=== PATIENT | male | born 1945 | race Caucasian/White ===

== ENCOUNTER 2016-12-01 06:26 | Inpatient (IN) | payer MEDICARE ==
[~2016-12-01] VITALS: Ht 175.3 cm; Wt 96.5 kg
[2016-12-01] VITALS (13 sets, daily range): BP systolic 125–161; BP diastolic 60–79; PULSE 67–82; RESP 14–20; TEMP 96.6–98; O2SAT 96–100
[~2016-12-01 06:26] MED LIST: ASPI81TA82 PO; BACI500O9 TOP; CEPH500C3 PO; GLIP5 PO; LOVA20TA PO; METF500 PO; NIAC50TA PO; PERC10TA27 PO; PRIN10TA PO
[2016-12-01] MEDS ORDERED: SODIUM CHLORIDE 0.9% FLUSH 5 ML FLUSH IVF PRN (06:30)
--- NOTE | 2016-12-01 07:00 | RADRPT ---
EXAM DATE/TIME: 12/01/2016 06:39 [facility] COMPARISON: CT BRAIN W/O CONTRAST, January 15, 2015, 1:07. INDICATIONS : Trauma; syncopal episode and fall. RADIATION DOSE: 47.59 CTDIvol (mGy) MEDICAL HISTORY : Hypertension. Diabetes mellitus type 2. SURGICAL HISTORY : None. ENCOUNTER: Initial ACUITY: 1 day PAIN SCALE: 3/10 LOCATION: cranial TECHNIQUE: Multiple contiguous axial images were obtained of the head. Using automated exposure control and adj ustment of the mA and/or kV according to patient size, radiation dose was kept as low as reasonably a chievable to obtain optimal diagnostic quality images. FINDINGS: CEREBRUM: The ventricles are normal for age. No evidence of midline shift, mass lesion, hemorrhage or acute in farction. No extra-axial fluid collections are seen. POSTERIOR FOSSA: The cerebellum and brainstem are intact. The 4th ventricle is midline. The cerebellopontine angle i s unremarkable. EXTRACRANIAL: The visualized portion of the orbits is intact. SKULL: The calvaria is intact. No evidence of skull fracture. CONCLUSION: Negative noncontrast CT brain. Remington Berg MD on December 01, 2016 at 6:57 Board Certified Radiologist. This report was verified electronically.
--- NOTE | 2016-12-01 07:01 | RADRPT ---
EXAM DATE/TIME: 12/01/2016 06:39 [facility] COMPARISON: CT FACIAL BONES W/O CONTRAST, January 15, 2015, 1:07. INDICATIONS : Trauma; syncopal episode and fall. RADIATION DOSE: 36.57 CTDIvol (mGy) MEDICAL HISTORY : Hypertension. Diabetes mellitus type 2. SURGICAL HISTORY : None. ENCOUNTER: Initial ACUITY: 1 day PAIN SCORE: 3/10 LOCATION: Bilateral facial TECHNIQUE: Volumetric scanning of the facial bones was performed. Using automated exposure control and adjustme nt of the mA and/or kV according to patient size, radiation dose was kept as low as reasonably achiev able to obtain optimal diagnostic quality images. FINDINGS: ORBITS: The orbital and infraorbital osseous structures are intact. The retroconal structures have a normal configuration. No radiopaque foreign bodies are seen. NASAL BONE: The nasal bone and maxillary spine are intact ZYGOMATIC ARCHES: Symmetric without evidence of fracture. SINUSES: The maxillary, ethmoid and frontal sinuses are intact. No air-fluid levels seen. NASAL CAVITY: The nasal septum is intact and midline. The lacrimal ducts are intact. SOFT TISSUES: No radiopaque foreign bodies seen. No soft-tissue swelling is seen. INTRACRANIAL: No intracranial air seen. CRIBIFORM PLATE: Grossly intact. CONCLUSION: No facial bone fractures seen. Remington Berg MD on December 01, 2016 at 6:59 Board Certified Radiologist. This report was verified electronically.
[2016-12-01] MEDS ORDERED: LISI10TA3 PO (07:21)
[2016-12-01] MEDS ORDERED: LOVA20TA PO (07:21)
[2016-12-01] MEDS ORDERED: ASPI1TAB69 PO (07:21)
[2016-12-01 07:22] LABS: AUTOMATED NEUTROPHIL # 7.2 TH/MM3 (1.8-7.7); BASOPHIL # 0.1 TH/MM3 (0-0.2); BASOPHIL % 0.7 % (0.0-2.0); EOSINOPHIL # 0.1 TH/MM3 (0-0.4); EOSINOPHIL % 1.7 % (0.0-4.0); HEMATOCRIT 31.1 % (39.0-51.0); HEMO FLAGS DIFF FINAL; LYMPH % 6.7 % (9.0-44.0); LYMPHOCYTE # 0.6 TH/MM3 (1.0-4.8); MEAN CELL VOLUME 95.9 FL (80.0-100.0); MEAN CORPUSCULAR HGB CONC 33.4 % (32.0-36.0); MONO % 9.4 % (0.0-8.0); NEUT % 81.5 % (16.0-70.0); PLATELET COUNT 179 TH/MM3 (150-450); RED BLOOD COUNT 3.24 MIL/MM3 (4.50-5.90); RED CELL DISTRIBUTION WIDTH 14.2 % (11.6-17.2); WHITE BLOOD COUNT 8.9 TH/MM3 (4.0-11.0)
--- NOTE | 2016-12-01 07:30 | PD ---
HPI Chief Complaint: Fall Time Seen by Provider: 07:06 Travel History International Travel<30 days: No Contact w/Intl Traveler<30days: No Traveled to known affect area: No History of Present Illness HPI 71-year-old male arrives to the ER by EMS. He woke up to use the bathroom this morning. In the bathroom he losy consciousness and fell to the ground. EMS notes there was stool in the toilet. Upon arrival to the scene EMS noted a large volume of blood on the patient about the floor. The patient was placed in a collar and on a backboard and brought to the ER. His vital signs were noted to have been within normal range with a heart rate of about 80 and a blood pressure of about 130/80. Blood sugar was 60. The GCS was 15 on scene. The patient complained of pain about the lower lip. In the ER he complains of pain related to the hard backboard however after removal be doesn't offer any specific complaint of pain. He does report losing consciousness. Patient reports he takes anticoagulants for stents however does not know the names of his medications [facility] Past Medical History High Cholesterol: Yes Diabetes: Yes Patient Takes Glucophage: No Diminished Hearing: Yes Hypertension: Yes Immunizations Current: Yes Past Surgical History Joint Replacement: Yes (LEFT ROTORCUFF 1991) Social History Alcohol Use: Yes (BEER A DAY) Tobacco Use: No Substance Use: No Allergies-Medications (Allergen,Severity, Reaction): Coded Allergies: No Known Allergies (Unverified , 12/01/16) Reported Meds & Prescriptions Reported Meds & Active Scripts Active Reported Lovastatin 20 Mg Tab 20 Mg PO DAILY Lisinopril 10 Mg Tab 10 Mg PO DAILY Aspirin 81 Mg Tabdr 81 Mg PO DAILY Review of Systems Except as stated in HPI: all other systems reviewed are Neg Physical Exam Narrative GENERAL: 71-year-old male well-nourished well-developed mild distress SKIN: Warm and dry. HEAD: Atraumatic. Normocephalic. EYES: Pupils equal and round. No scleral icterus. No injection or drainage. ENT: No nasal bleeding or discharge. Mucous membranes pink and moist. Lower frontal dentition demonstrates an Ruff 2 fractures and a 2 cm maximal diameter round gingival laceration about the region of the canine on the right lower side. NECK: Trachea midline. No JVD. CARDIOVASCULAR: Regular rate and rhythm. No murmur appreciated. RESPIRATORY: No accessory muscle use. Clear to auscultation. Breath sounds equal bilaterally. GASTROINTESTINAL: Abdomen soft, non-tender, nondistended. Hepatic and splenic margins not palpable. MUSCULOSKELETAL: No obvious deformities. No clubbing. No cyanosis. No edema. NEUROLOGICAL: Awake and alert. No obvious cranial nerve deficits. Motor grossly within normal limits. Normal speech. PSYCHIATRIC: Appropriate mood and affect; insight and judgment normal. Data Data Last Documented VS Vital Signs Date Time Temp Pulse Resp B/P Pulse Ox O2 Delivery O2 Flow Rate FiO2 12/01/16 06:32 98.0 67 16 141/69 100 Room Air Orders Electrocardiogram (12/01/16 06:29) Complete Blood Count With Diff (12/01/16 06:29) Troponin I (12/01/16 06:29) Act Partial Throm Time (Ptt) (12/01/16 06:29) Prothrombin Time / Inr (Pt) (12/01/16 06:29) Ct Brain W/O Iv Contrast(Rout) (12/01/16 06:29) Blood Glucose (12/01/16 06:29) Ecg Monitoring (12/01/16 06:29) Iv Access Insert/Monitor (12/01/16 06:29) Oximetry (12/01/16 06:29) Sodium Chloride 0.9% Flush (Ns Flush) (12/01/16 06:30) Ct Facial Bones W/O Iv Cont (12/01/16 ) Basic Metabolic Panel (Bmp) (12/01/16 06:29) Pelvis, Ap Only (Routine) (12/01/16 06:39) Labs Laboratory Tests Test 12/01/16 07:05 White Blood Count 8.9 TH/MM3 Red Blood Count 3.24 MIL/MM3 Hemoglobin 10.4 GM/DL Hematocrit 31.1 % Mean Corpuscular Volume 95.9 FL Mean Corpuscular Hemoglobin 32.0 PG Mean Corpuscular Hemoglobin 33.4 % Concent Red Cell Distribution Width 14.2 % Platelet Count 179 TH/MM3 Mean Platelet Volume 8.6 FL Neutrophils (%) (Auto) 81.5 % Lymphocytes (%) (Auto) 6.7 % Monocytes (%) (Auto) 9.4 % Eosinophils (%) (Auto) 1.7 % Basophils (%) (Auto) 0.7 % Neutrophils # (Auto) 7.2 TH/MM3 Lymphocytes # (Auto) 0.6 TH/MM3 Monocytes # (Auto) 0.8 TH/MM3 Eosinophils # (Auto) 0.1 TH/MM3 Basophils # (Auto) 0.1 TH/MM3 CBC Comment DIFF FINAL Differential Comment MDM Medical Decision Making Medical Screen Exam Complete: Yes Emergency Medical Condition: Yes Medical Record Reviewed: Yes Differential Diagnosis Bleed, facial bone fracture, laceration, anemia, electrolyte imbalance, arrhythmia, vasovagal episode Narrative Course Blood work and imaging to be followed up by oncoming provider. Faustino Chirinos MD Dec 01, 2016 07:30
[2016-12-01 07:32] LABS: PROTHROMBIN TIME - PATIENT 10.7 SEC (9.8-11.6)
--- NOTE | 2016-12-01 07:33 | RADRPT ---
EXAM DATE/TIME: 12/01/2016 06:52 [facility] COMPARISON: No previous studies available for comparison. INDICATIONS : Fall Pelvic pain MEDICAL HISTORY : Hypertension. Diabetes mellitus type II. SURGICAL HISTORY : None. ENCOUNTER: Initial ACUITY: 1 day PAIN SCORE: 8/10 LOCATION: Bilateral pelvis FINDINGS: Single AP view of the pelvis demonstrates no fracture or dislocation. Mineralization is within normal limits. There are mild degenerative changes at the hip joints. No soft tissue abnormality or radiopa que foreign body is identified. CONCLUSION: No acute abnormality is identified. Maurice Vargas MD on December 01, 2016 at 7:30 Board Certified Radiologist. This report was verified electronically.
[2016-12-01 07:37] LABS: APTT (PATIENT) 25.9 SEC (24.3-30.1)
[2016-12-01] MEDS ORDERED: LIDOCAINE 1%/EPINEPHrine 1:100,000 SOLN 20 ML VIAL INFIL ONE (07:45)
[2016-12-01 07:53] LABS: ANION GAP 11 MEQ/L (5-15); BLOOD UREA NITROGEN 86 MG/DL (7-18); CHLORIDE 103 MEQ/L (98-107); GLOMERULAR FILTRATION RATE 19 ML/MIN (>89); SODIUM (NA) 133 MEQ/L (136-145)
--- NOTE | 2016-12-01 08:00 | PD ---
Physical Exam Date Seen by Provider: Dec 01, 2016 Time Seen by Provider: 08:00 Narrative Patient is a 71-year-old male who had a syncopal episode this morning brought in by EMS. He is managed by Dr. Rhodes who asked me to perform lower lip laceration repair. Please refer to her note for full history and physical and disposition. Data Data Last Documented VS Vital Signs Date Time Temp Pulse Resp B/P Pulse Ox O2 Delivery O2 Flow Rate FiO2 12/01/16 06:32 98.0 67 16 141/69 100 Room Air Orders Electrocardiogram (12/01/16 06:29) Complete Blood Count With Diff (12/01/16 06:29) Troponin I (12/01/16 06:29) Act Partial Throm Time (Ptt) (12/01/16 06:29) Prothrombin Time / Inr (Pt) (12/01/16 06:29) Ct Brain W/O Iv Contrast(Rout) (12/01/16 06:29) Blood Glucose (12/01/16 06:29) Ecg Monitoring (12/01/16 06:29) Iv Access Insert/Monitor (12/01/16 06:29) Oximetry (12/01/16 06:29) Sodium Chloride 0.9% Flush (Ns Flush) (12/01/16 06:30) Ct Facial Bones W/O Iv Cont (12/01/16 ) Basic Metabolic Panel (Bmp) (12/01/16 06:29) Pelvis, Ap Only (Routine) (12/01/16 06:39) Lidocai-Epi 1%-1:100,000 Inj (Xylocaine- (12/01/16 07:45) Sodium Chlor 0.9% 1000 Ml Inj (Ns 1000 M (12/01/16 08:15) Dextrose 50% In Benji (Syr) Inj (D50w (Syr (12/01/16 08:30) Admit Order (Ed Use Only) (12/01/16 08:47) Labs Laboratory Tests Test 12/01/16 07:05 White Blood Count 8.9 TH/MM3 Red Blood Count 3.24 MIL/MM3 Hemoglobin 10.4 GM/DL Hematocrit 31.1 % Mean Corpuscular Volume 95.9 FL Mean Corpuscular Hemoglobin 32.0 PG Mean Corpuscular Hemoglobin 33.4 % Concent Red Cell Distribution Width 14.2 % Platelet Count 179 TH/MM3 Mean Platelet Volume 8.6 FL Neutrophils (%) (Auto) 81.5 % Lymphocytes (%) (Auto) 6.7 % Monocytes (%) (Auto) 9.4 % Eosinophils (%) (Auto) 1.7 % Basophils (%) (Auto) 0.7 % Neutrophils # (Auto) 7.2 TH/MM3 Lymphocytes # (Auto) 0.6 TH/MM3 Monocytes # (Auto) 0.8 TH/MM3 Eosinophils # (Auto) 0.1 TH/MM3 Basophils # (Auto) 0.1 TH/MM3 CBC Comment DIFF FINAL Differential Comment Prothrombin Time 10.7 SEC Prothromb Time International 1.0 RATIO Ratio Activated Partial 25.9 SEC Thromboplast Time Sodium Level 133 MEQ/L Potassium Level 5.0 MEQ/L Chloride Level 103 MEQ/L Carbon Dioxide Level 19.0 MEQ/L Anion Gap 11 MEQ/L Blood Urea Nitrogen 86 MG/DL Creatinine 3.27 MG/DL Estimat Glomerular Filtration 19 ML/MIN Rate Random Glucose 52 MG/DL Calcium Level 7.8 MG/DL Troponin I LESS THAN 0.02 NG/ML [facility] Medical Record Reviewed: Yes Supervised Visit with RICHARD: Yes Procedures Procedure Narrative LACERATION #1 LOCATION: Right lower lip buccal mucosa LENGTH: 1 cm NUMBER OF STITCHES/RL: 1 [id number] REPAIR: The area of the laceration was prepped with Betadine and sterilely draped. The laceration was infiltrated with 0.5cc of 1% lidocaine with epinephrine. The wound was copiously irrigated and explored without evidence of foreign body, tendon injury or neurovascular injury. The wound was closed using 4-0 Vicryl. This was a single layer repair. Patient tolerated the procedure well. LACERATION #2 LOCATION: Right lower lip buccal mucosa LENGTH: 4 mm SHAPE: Linear NUMBER OF STITCHES/RL: One simple interrupted REPAIR: The area of the laceration was prepped with Betadine and sterilely draped. The laceration was infiltrated with 0.25 cc of 1% lidocaine with epinephrine. The wound was copiously irrigated and explored without evidence of foreign body, or neurovascular injury. The wound was closed using 4-0 Vicryl. This was a single layer repair. Patient tolerated the procedure well. LACERATION LOCATION: Right lower lip buccal mucosa LENGTH: 6 mm SHAPE: Linear NUMBER OF STITCHES/RL: One simple interrupted REPAIR: The area of the laceration was prepped with Betadine and sterilely draped. The laceration was infiltrated with 0.5 cc of 1% lidocaine with epi. The wound was copiously irrigated and explored without evidence of foreign body, tendon injury or neurovascular injury. The wound was closed using 4-0 Vicryl. This was a single layer repair. Patient tolerated the procedure well. LACERATION #4 LOCATION: Right chin LENGTH: 5 mm SHAPE: Linear NUMBER OF STITCHES/RL: 1 REPAIR: The area of the laceration was prepped with Betadine and sterilely draped. The laceration was infiltrated with 0.5 cc of 1% lidocaine with epinephrine. The wound was copiously irrigated and explored without evidence of foreign body, tendon injury or neurovascular injury. The wound was closed using 6-0 Prolene. This was a single layer repair. Patient tolerated the procedure well. LACERATION #5 LOCATION: Right chin LENGTH: 5 mm SHAPE: Linear NUMBER OF STITCHES/RL: 1 REPAIR: The area of the laceration was prepped with Betadine and sterilely draped. The laceration was infiltrated with 0.5 cc of 1% lidocaine with epi. The wound was copiously irrigated and explored without evidence of foreign body or neurovascular injury. The wound was closed using 6-0 Prolene. This was a single layer repair. Patient tolerated the procedure well. Diagnosis Primary Impression: Lip laceration Qualified Code: S01.511A - Lip laceration, initial encounter Condition: Stable Maurice Vallejo III Dec 01, 2016 08:00
[2016-12-01] MEDS ORDERED: SODIUM CHLOR 0.9% 1000 ML INJ 1,000 ML IV ONE (08:15)
[2016-12-01] MEDS ORDERED: DEXTROSE 50% IN WATER 50 ML SYRINGE IV ONE (08:30)
--- NOTE | 2016-12-01 08:55 | HHI.HP ---
HPI Service Family Medicine Primary Care Physician Non-Staff Admission Diagnosis renal failure Diagnoses: International Travel<30 Days: No Contact w/Intl Traveler<30days: No Known Affected Area: No History of Present Illness 71y male with CAD s/p 3 stents, HTN, HLD, and DM2 presents 11/30/16 by EMS after passing out and waking up on bathroom floor. He denies any memory of events leading up to fall. Best he remembers, went to bathroom at 4:30am, noted water on the floor from leaky sink, and next memory is being at the hospital. Per family friend, pt hit back of his head on bathtub and was "out of it", agitated and trying to punch her. He bit his mouth during the event, puncturing the skin and bleeding profusely. Also has mild shoulder pain, but no other muscle or nerve pain. Currently denies GALLAGHER, blurry vision, chest pain, palpitations, or SOB. Has history of hypoglycemic episodes resulting in syncope or near-syncopal events. Denies drinking excessively evening of fall- had two beers with lunch. Denies changes to medication regimen. Denies focal muscle pain or loss of function- he has mild bilateral shoulder pain where he hit. Review of Systems Constitutional: DENIES: Fever, Chills, Dizziness Eyes: DENIES: Blurred vision, Double Vision Ears, nose, mouth, throat: DENIES: Sinus Pain, Toothache Respiratory: DENIES: Cough, Shortness of breath Cardiovascular: COMPLAINS OF: Syncope, Lower Extremity Edema (R only), DENIES : Chest pain, Palpitations Gastrointestinal: DENIES: Constipation, Diarrhea, Nausea, Vomiting Genitourinary: DENIES: Urgency, Hematuria, Dysuria Musculoskeletal: COMPLAINS OF: Muscle aches (shoulder, bilateral), Back pain ( lumbar, chronic) Hematologic/lymphatic: COMPLAINS OF: Bruising (knees) Neurologic: COMPLAINS OF: Speech Problems (secondary to lip swelling), DENIES : Headache, Localized weakness, Paresthesias, Seizures Psychiatric: DENIES: Confusion, Depression Past Family Social History Past Medical History CAD s/p 3 stents (04/2016) HTN HLD DM2 Alcohol use above recommended limit (3-4 beers/day) Hx ARTHUR secondary to contrast (2015) Past Surgical History Cardiac stent x3 (04/2016) L rotator cuff repair (1991) Reported Medications (OBTAINED FROM CALLING [facility] 11/30/16) Allopurinol 300 Mg Tab 300 Mg PO DAILY Isosorbide Mononitrate ER (Isosorbide Mononitrate) 60 Mg Tab 60 Mg PO DAILY Brilinta (Ticagrelor) 90 Mg Tab 90 Mg PO BID Clopidogrel (Clopidogrel Bisulfate) 75 Mg Tab 75 Mg PO DAILY Furosemide 40 Mg Tab 40 Mg PO BID Lisinopril 20 Mg Tab 20 Mg PO DAILY Glimepiride 4 Mg Tab 4 Mg PO DAILY Amlodipine (Amlodipine Besylate) 5 Mg Tab 5 Mg PO DAILY Trazodone (Trazodone HCl) 50 Mg Tab 50 Mg PO HS Allergies: Coded Allergies: No Known Allergies (Unverified , 12/01/16) Family History Father, , "oat cell" cancer Mother, 84y, unknown cause of Two children, healthy Social History Tobacco: none (quit 50+ years ago when joining [employer], 1967) Alcohol: daily, beer, 3-4 drinks, denies hx withdrawal Illicit drugs: denies Retired police manager. Lives alone, but has friend, Kisha, staying with him at present (she called EMS). Lives in [place], [place], travels between there and here every couple of weeks. Has flight Friday to return. Unsure who would be medical decision-maker: ultimately states it would be his brother, Alf , who lives in [place], [place] Physical Exam Vital Signs Vital Signs Date Time Temp Pulse Resp B/P Pulse Ox O2 Delivery O2 Flow Rate FiO2 12/01/16 06:32 98.0 67 16 141/69 100 Room Air Physical Exam CONST: Obese male in NAD DERM: Warm and dry, superficial abrasions on both arms, erythema on knees bilaterally HEENNT: PERRL. EOMI. MMM. Myosis. Very poor dentition with jagged teeth. Laceration of skin under R lip in semi-[place] configuration, ~2 inch in length, closed with sutures. R lip grossly swollen. CV: RRR. No murmurs. RESP: Prolonged expiratory phase with harsh transmitted upper respiratory sounds. Moderate air movement. Breathing well on RA. Speaks full sentences without difficulty. GI: Abd soft, distended, non-tender. +BS MSK: Moves all four limbs against gravity. R ankle swollen, non-tender, non- erythematous. Yellow, brittle, dry toenails. No skin breakdown noted on feet. NEURO: Alert and oriented to person, place (State, City) , time (Year, Month, Date), and reason for hospitalization. Motor and sensory function grossly intact. PSYCH:Appropriate. Moderate insight. Laboratory Laboratory Tests Test 12/01/16 07:05 White Blood Count 8.9 Red Blood Count 3.24 Hemoglobin 10.4 Hematocrit 31.1 Mean Corpuscular Volume 95.9 Mean Corpuscular Hemoglobin 32.0 Mean Corpuscular Hemoglobin 33.4 Concent Red Cell Distribution Width 14.2 Platelet Count 179 Mean Platelet Volume 8.6 Neutrophils (%) (Auto) 81.5 Lymphocytes (%) (Auto) 6.7 Monocytes (%) (Auto) 9.4 Eosinophils (%) (Auto) 1.7 Basophils (%) (Auto) 0.7 Neutrophils # (Auto) 7.2 Lymphocytes # (Auto) 0.6 Monocytes # (Auto) 0.8 Eosinophils # (Auto) 0.1 Basophils # (Auto) 0.1 CBC Comment DIFF FINAL Differential Comment Prothrombin Time 10.7 Prothromb Time International 1.0 Ratio Activated Partial 25.9 Thromboplast Time Sodium Level 133 Potassium Level 5.0 Chloride Level 103 Carbon Dioxide Level 19.0 Anion Gap 11 Blood Urea Nitrogen 86 Creatinine 3.27 Estimat Glomerular Filtration 19 Rate Random Glucose 52 Calcium Level 7.8 Troponin I LESS THAN 0.02 Result Diagram: 12/01/16 0705 12/01/16 0705 Imaging Last Impressions Pelvis X-Ray 12/01/16 0639 Signed Impressions: Service Date/Time: Thursday, December 01, 2016 06:52 - CONCLUSION: No acute abnormality is identified. Maurice Vargas MD Head CT 12/01/16 0629 Signed Impressions: Service Date/Time: Thursday, December 01, 2016 06:39 - CONCLUSION: Negative noncontrast CT brain. Remington Berg MD Maxillofacial CT 12/01/16 0000 Signed Impressions: Service Date/Time: Thursday, December 01, 2016 06:39 - CONCLUSION: No facial bone fractures seen. Remington Berg MD Assessment and Plan Assessment and Plan 71y male with DM2 and CAD hospitalized 11/30/15 for syncope, found to be in acute renal failure and hypoglycemic. Code Status Full Discussed Condition With SDW: Dr. Hicks DW: Dr. Jacques Problem List: (1) Syncope Status: Acute Plan: Presented via EMS after unremembered fall in bathroom with head contusion , AMS, questionable LOC. Pt alert and oriented during interview. Blood sugar 52 on arrival, repeat 60. Shaking arms and some word finding difficulty. Hx of hypoglycemic episodes resulting in syncope. Afebrile. No leukocytosis. No anemia. Hypertensive to 190/90 on arrival-. Neuro exam with no focal sensory or motor deficits. Ddx: Hypoglycemia vs orthostatic hypotension vs alcohol intoxication vs cardiac arrhythmia vs mechanical fall vs polypharmacy Plan Admit to inpatient (Attending: Dr. Jacques) ACS rule out: Trend Trops, CK, EKG EKGs pending Trop #1 wnl. Trops 2&3 pending CK 1&2 pending Carotid artery ultrasound pending Daily BMP Electrolytes wnl on admission Monitor and replete blood sugars (see DM2) Hypoglycemic on admission- POC glu 50 and 62 Infectious U/A pending Imaging: Head CT: no acute bleed Pelvic xray: no acute fx Facial CT w/o- no acute fx facial bones Supportive care OOB with assistance, continuous telemetry, oxygen supplementation PRN saturations 88+, PT consulted (2) Renal failure Status: Acute Plan: ED visit 2 years ago- baseline Cr 1.6. Currently 3.4. Denies recent changes to medications or drinking habits. Denies changes to UOP or weight loss /weight gain. -Fluids as below -Trend Bun/Cr -Monitor I/Os -Mg, Ca, PO4, LFT, uric acid pending (3) Lip laceration Status: Acute Plan: Poor dentition with jagged teeth. Appears to have bit lip during fall. S/p lac repair in ED. Per UTD, will start prophylactic abx as below. -Amoxicillin 500mg BID -Pain management: [place] 5/325 1 tab q6h pain 5-10 [place] 5/325 1 tab q6h breakthrough pain (4) DM2 (diabetes mellitus, type 2) Status: Chronic Plan: Hold home glimeperide. -LSSI + Accue-checks ACHS -Pending sugars over next 24 hours, may add scheduled insulin at meals (5) CAD (coronary artery disease) Status: Chronic Plan: S/p stents x3 (04/2016). -Continue home aspirin -Continue home Plavix -Discontinue duplicate medication, discontinue at discharge -Continue home Lasix 40mg BID -Continue home Isosorbide mononitrate 60mg daily (6) HLD (hyperlipidemia) Status: Chronic Plan: No lipid lowering medications on admit. Pt is poor historian for medications- appears to get some from PCP in [facility] and some from [place]. -Pravastatin 40mg daily HS, continue at discharge (7) HTN (hypertension) Status: Chronic Plan: -Continue home amlodipine 5mg daily -Continue home lisinopril 20mg daily (8) Gout Status: Chronic Plan: -Hold home allopurinol 300mg daily (9) Alcohol consuption of more than two drinks per day Status: Chronic Plan: 3-4 beers/daily. No hx of withdrawal. -[facility] protocol -Alcohol cessation counseling provided. Recommended <2 drinks/daily for men (10) MDD (major depressive disorder) Status: Chronic Plan: -Continue home trazodone 50mg HS (11) FEN/PPX Status: Acute Plan: Fluids: MIVF- NS @140mL/hr Electrolytes: monitor and replete, PRN. Wnl on admission. Continue monitor potassium w renal failure Nutrition: Diabetic 1800cal diet DVT ppx: Lovenox 30mg INJ daily (renally dosed for acute renal failure) GI ppx: Not indicated Physician Certification 2 Midnight Certification Type: Admission for Inpatient Services Order for Inpatient Services The services are ordered in accordance with Medicare regulations or non- Medicare payer requirements, as applicable. In the case of services not specified as inpatient-only, they are appropriately provided as inpatient services in accordance with the 2-midnight benchmark. Estimated LOS (days): 2 days is the estimated time the patient will need to remain in the hospital, assuming treatment plan goals are met and no additional complications. Post-Hospital Plan: Home Problem Qualifiers (1) Syncope: Qualified Code: R55 - Syncope, unspecified syncope type (2) Lip laceration: Qualified Code: S01.511A - Lip laceration, initial encounter (3) DM2 (diabetes mellitus, type 2): (4) CAD (coronary artery disease): Qualified Code: I25.10 - Coronary artery disease involving [place] coronary artery of [place] heart without angina pectoris (5) Gout: Qualified Code: M1A.30X0 - Chronic gout due to renal impairment without tophus , unspecified site (6) MDD (major depressive disorder): Qualified Code: F33.41 - Recurrent major depressive disorder, in partial remission Luana Gonzalez MD R1 Dec 01, 2016 08:55
--- NOTE | 2016-12-01 09:46 | PD ---
Data Data Last Documented VS Vital Signs Date Time Temp Pulse Resp B/P Pulse Ox O2 Delivery O2 Flow Rate FiO2 12/01/16 06:32 98.0 67 16 141/69 100 Room Air Orders Electrocardiogram (12/01/16 06:29) Complete Blood Count With Diff (12/01/16 06:29) Troponin I (12/01/16 06:29) Act Partial Throm Time (Ptt) (12/01/16 06:29) Prothrombin Time / Inr (Pt) (12/01/16 06:29) Ct Brain W/O Iv Contrast(Rout) (12/01/16 06:29) Blood Glucose (12/01/16 06:29) Ecg Monitoring (12/01/16 06:29) Iv Access Insert/Monitor (12/01/16 06:29) Oximetry (12/01/16 06:29) Sodium Chloride 0.9% Flush (Ns Flush) (12/01/16 06:30) Ct Facial Bones W/O Iv Cont (12/01/16 ) Basic Metabolic Panel (Bmp) (12/01/16 06:29) Pelvis, Ap Only (Routine) (12/01/16 06:39) Lidocai-Epi 1%-1:100,000 Inj (Xylocaine- (12/01/16 07:45) Sodium Chlor 0.9% 1000 Ml Inj (Ns 1000 M (12/01/16 08:15) Dextrose 50% In Benji (Syr) Inj (D50w (Syr (12/01/16 08:30) Admit Order (Ed Use Only) (12/01/16 08:47) Labs Laboratory Tests Test 12/01/16 07:05 White Blood Count 8.9 TH/MM3 Red Blood Count 3.24 MIL/MM3 Hemoglobin 10.4 GM/DL Hematocrit 31.1 % Mean Corpuscular Volume 95.9 FL Mean Corpuscular Hemoglobin 32.0 PG Mean Corpuscular Hemoglobin 33.4 % Concent Red Cell Distribution Width 14.2 % Platelet Count 179 TH/MM3 Mean Platelet Volume 8.6 FL Neutrophils (%) (Auto) 81.5 % Lymphocytes (%) (Auto) 6.7 % Monocytes (%) (Auto) 9.4 % Eosinophils (%) (Auto) 1.7 % Basophils (%) (Auto) 0.7 % Neutrophils # (Auto) 7.2 TH/MM3 Lymphocytes # (Auto) 0.6 TH/MM3 Monocytes # (Auto) 0.8 TH/MM3 Eosinophils # (Auto) 0.1 TH/MM3 Basophils # (Auto) 0.1 TH/MM3 CBC Comment DIFF FINAL Differential Comment Prothrombin Time 10.7 SEC Prothromb Time International 1.0 RATIO Ratio Activated Partial 25.9 SEC Thromboplast Time Sodium Level 133 MEQ/L Potassium Level 5.0 MEQ/L Chloride Level 103 MEQ/L Carbon Dioxide Level 19.0 MEQ/L Anion Gap 11 MEQ/L Blood Urea Nitrogen 86 MG/DL Creatinine 3.27 MG/DL Estimat Glomerular Filtration 19 ML/MIN Rate Random Glucose 52 MG/DL Calcium Level 7.8 MG/DL Troponin I LESS THAN 0.02 NG/ML MDM Supervised Visit with RICHARD: Yes Narrative Course This is a 71-year-old male who I assumed care for for Dr. Chirinos. He had an episode of syncope this morning and sustained 2 through and through lacerations on his lower lip. CTs are reassuring but labs demonstrate acute renal failure which likely contributed to the patient's syncope. Patient will be admitted for IV hydration and further nephrology evaluation. Diagnosis Primary Impression: Renal failure Additional Impression: Lip laceration Qualified Code: S01.511A - Lip laceration, initial encounter Admitting Information Admitting Physician Requests: Admit Condition: Stable Jazmine Rhodes MD Dec 01, 2016 09:46
[2016-12-01] MEDS ORDERED: GLIM4TAB PO ×2 (09:49→13:57)
[2016-12-01] MEDS ORDERED: ISOS60TA PO (09:49)
[2016-12-01] MEDS ORDERED: CLOP75TA PO (09:49)
[2016-12-01] MEDS ORDERED: BRIL90TA PO (09:49)
[2016-12-01] MEDS ORDERED: ALLO300T2 PO ×2 (09:49→13:57)
[2016-12-01] MEDS ORDERED: FURO40TA PO (09:49)
[2016-12-01] MEDS ORDERED: TRAZ50TA12 PO ×2 (09:49→13:57)
[2016-12-01] MEDS ORDERED: AMLO5TAB2 PO (09:49)
[2016-12-01] MEDS ORDERED: LISI-515 PO (09:49)
[2016-12-01] MEDS ORDERED: SODIUM CHLORIDE 0.9% FLUSH 5 ML FLUSH IV PRN (10:00)
[2016-12-01] MEDS ORDERED: ONDANSETRON ODT 4 MG TAB PO PRN (10:00)
[2016-12-01] MEDS ORDERED: NALOXONE HCL 0.4 MG/ML AMP IV PRN (10:00)
[2016-12-01] MEDS ORDERED: ACETAMINOPHEN 325 MG TAB PO PRN (10:00)
[2016-12-01] MEDS ORDERED: GLUCAGON 1 MG/ML VIAL OTHER PRN (10:00)
[2016-12-01] MEDS ORDERED: DEXTROSE 50% IN WATER 50 ML VIAL(D50) IV PUSH PRN (10:00)
[2016-12-01] MEDS ORDERED: FLUMAZENIL 0.5 MG/5 ML VIAL IV PUSH PRN (10:15)
[2016-12-01] MEDS ORDERED: LORazepam 1 MG TAB PO PRN (10:15)
[2016-12-01] MEDS ORDERED: LORazepam 2 MG TAB PO PRN (10:15)
[2016-12-01] MEDS ORDERED: LORazepam 2 MG/ML VIAL IV PUSH PRN ×4 (10:15)
[2016-12-01] MEDS ORDERED: ACETAMINOPHEN/HYDROcodone 325 MG/5 MG TAB PO PRN ×2 (10:15)
[2016-12-01] MEDS: AMOXICILLIN (TRIHYDRATE) 500 MG CAP PO SCH ×2 (10:50→21:00)
[2016-12-01] MEDS: ENOXAPARIN SODIUM 30 MG/0.3 ML SYRINGE SQ SCH (10:50)
[2016-12-01] MEDS: SODIUM CHLOR 0.9% 1000 ML INJ 1,000 ML IV SCH ×2 (10:51→17:25)
[2016-12-01] MEDS: INSULIN ASPART SUPPLEMENTAL SCALE SQ SCH ×3 (10:58→21:00)
[2016-12-01] MEDS: SODIUM CHLORIDE 0.9% FLUSH 5 ML FLUSH IV SCH ×2 (10:59→21:15)
[2016-12-01 13:31] LABS: TOTAL BILIRUBIN ADULT 0.4 MG/DL (0.2-1.0)
[2016-12-01 13:33] LABS: INDIRECT BILIRUBIN 0.3 MG/DL (0.0-0.8)
[2016-12-01] MEDS ORDERED: FURO1TAB62 PO (13:57)
[2016-12-01] MEDS ORDERED: LISI40TA PO (13:57)
[2016-12-01] MEDS ORDERED: NIAC500T5 PO (13:57)
[2016-12-01] MEDS ORDERED: CARV25TA PO (13:57)
[2016-12-01 15:15] LABS: URIC ACID 6.2 MG/DL (2.6-7.2)
[2016-12-01 15:17] LABS: CREATINE KINASE 161 U/L (39-308)
[2016-12-01] MEDS ORDERED: cloNIDine HCL 0.1 MG TAB PO PRN (16:00)
[2016-12-01 20:51] LABS: CREATINE KINASE 145 U/L (39-308)
[2016-12-01] MEDS ORDERED: traZODone HCL 50 MG TAB PO SCH (21:00)
[2016-12-01] MEDS ORDERED: DOCUSATE SODIUM 50 MG/SENNA 8.6 MG TAB PO SCH (21:00)
[2016-12-01] MEDS: FUROSEMIDE 40 MG TAB PO SCH (21:15)
--- NOTE | 2016-12-01 23:18 | EKG ---
Date Performed: 12/01/2016 Time Performed: 07:02:38 PTAGE: 71 years EKG: Sinus rhythm Low Voltage precordial leads PREVIOUS TRACING : 01/15/2015 01.52 Compared to prior tracing no significant change DOCTOR: Gerson Chirinos Interpretating Date/Time 12/01/2016 23:17:39
--- NOTE | 2016-12-01 23:45 | RADRPT ---
EXAM DATE/TIME: 12/01/2016 21:31 [facility] COMPARISON: No previous studies available for comparison. INDICATIONS : Syncope. MEDICAL HISTORY : Hypercholesterolemia. Hypertension. Syncope. Diabetes. Coronary artery disease. SURGICAL HISTORY : Rotator cuff, left. Coronary artery stent. ENCOUNTER: Initial ACUITY: 1 day PAIN SCORE: 0/10 LOCATION: Bilateral neck PEAK SYSTOLIC VELOCITIES (cm/sec): ICA/CCA RATIO: Right: 1.1 Left: 1.0 ICA: Right: 96 Left: 107 CCA: Right: 87 Left: 107 ECA: Right: 106 Left: 144 VERTEBRAL: Right: 27 antegrade Left: 53 antegrade Elevated flow velocities and ICA/CCA ratios have been found to correlate with increased degrees of vessel stenosis, calculated as percentage of diameter relative to a normal segment of distal ICA/CCA FINDINGS: RIGHT CAROTID: Mild atherosclerotic changes at the bifurcation. No significant stenosis is visualized. The waveform s are within normal limits. LEFT CAROTID: Mild atherosclerotic changes of the bifurcation. No significant stenosis is visualized. The waveform s are within normal limits. VERTEBRAL ARTERIES: Antegrade flow is seen in both vertebral arteries. MISCELLANEOUS: None. CONCLUSION: Mild atherosclerotic changes at the carotid bifurcation bilaterally. No focal high grade or hemodynam ically significant stenosis is demonstrated. Hang Loco MD on December 01, 2016 at 23:42 Board Certified Radiologist. This report was verified electronically.
[2016-12-02 01:41] VITALS: BP 145/75; PULSE 83; RESP 20; TEMP 97.3; O2SAT 96
[2016-12-02] MEDS: SODIUM CHLOR 0.9% 1000 ML INJ 1,000 ML IV SCH ×2 (02:55→10:06)
[2016-12-02 03:01] LABS: BLOOD, URINE TRACE (NEG); GLUCOSE,URINE NEG (NEG); KETONE, URINE NEG (NEG); MUCUS URINE FEW /lpf (OCC); NITRITE,URINE NEG (NEG); PH, URINE 5.5 (5.0-8.5); URINE COLOR LIGHT-YELLOW (YELLW/STRAW)
[2016-12-02 03:08] LABS: COMMENT (UR) CULT NOT INDICATED; CULTURE IF INDICATED CULT NOT INDICATED
[2016-12-02 06:40] VITALS: BP 134/67; PULSE 78; RESP 18; TEMP 97.9; O2SAT 95
[2016-12-02] MEDS: INSULIN ASPART SUPPLEMENTAL SCALE SQ SCH ×3 (07:00→17:27)
[2016-12-02 07:20] VITALS: BP 112/72; PULSE 84; RESP 20; TEMP 98.5; O2SAT 95
[2016-12-02] MEDS: FUROSEMIDE 40 MG TAB PO SCH (08:39)
[2016-12-02] MEDS: AMOXICILLIN (TRIHYDRATE) 500 MG CAP PO SCH (08:40)
[2016-12-02] MEDS: ENOXAPARIN SODIUM 30 MG/0.3 ML SYRINGE SQ SCH (08:42)
[2016-12-02 08:43] LABS: HEMATOCRIT 28.3 % (39.0-51.0); MEAN CELL VOLUME 96.1 FL (80.0-100.0); MEAN CORPUSCULAR HEMOGLOBIN 32.1 PG (27.0-34.0); MEAN CORPUSCULAR HGB CONC 33.4 % (32.0-36.0); PLATELET COUNT 171 TH/MM3 (150-450); RED BLOOD COUNT 2.95 MIL/MM3 (4.50-5.90); RED CELL DISTRIBUTION WIDTH 14.5 % (11.6-17.2); REVIEW FLAG FINAL
[2016-12-02] MEDS: SODIUM CHLORIDE 0.9% FLUSH 5 ML FLUSH IV SCH (08:43)
[2016-12-02] MEDS ORDERED: ISOSORBIDE MONONITRATE 60 MG TAB PO SCH (09:00)
[2016-12-02] MEDS ORDERED: CLOPIDOGREL 75 MG TAB PO SCH (09:00)
[2016-12-02] MEDS ORDERED: PRAVASTATIN SOD 40 MG TAB PO SCH (09:00)
[2016-12-02] MEDS ORDERED: CARVEDILOL 12.5 MG TAB PO SCH (09:00)
[2016-12-02] MEDS ORDERED: amLODIPine BESYLATE 5 MG TAB PO SCH (09:00)
[2016-12-02 09:32] LABS: BICARBONATE 20.6 MEQ/L (21.0-32.0); POTASSIUM 4.5 MEQ/L (3.5-5.1)
[2016-12-02 11:20] VITALS: BP 111/67; PULSE 72; RESP 18; TEMP 97.8; O2SAT 98
--- NOTE | 2016-12-02 12:25 | HHI.FPPN ---
Subjective Remarks Overnight, SIA. Afebrile. Hypertensive to 160/80. Breathing well on RA. I/O not recorded. Chief c/o wanting to go home. Has minor pain in R lip, tolerable. Has not yet attempted to eat, but ordered breakfast and will see what can tolerate. Unable to actively ABduct and forward flex at L shoulder. This is new complaint secondary to fall Passive movement at shoulder also severely restricted secondary to pain. Hx of L rotator cuff repair in this arm. (Luana Gonzalez MD R1) Objective Vitals Vital Signs Date Time Temp Pulse Resp B/P Pulse Ox O2 Delivery O2 Flow Rate FiO2 12/02/16 07:20 98.5 84 20 112/72 95 12/02/16 06:40 97.9 78 18 134/67 95 12/02/16 01:41 97.3 83 20 145/75 96 12/01/16 21:49 96.6 82 18 148/71 97 12/01/16 20:00 79 12/01/16 17:00 96.6 78 20 161/79 96 12/01/16 15:00 72 16 127/64 99 Room Air 12/01/16 14:24 98 12/01/16 14:00 74 16 134/70 98 Room Air 12/01/16 13:00 76 16 125/60 98 Room Air I/O 12/01/16 12/01/16 12/01/16 12/02/16 12/02/16 12/02/16 07:00 15:00 23:00 07:00 15:00 23:00 Intake Total 480 ml 1427 ml Balance 480 ml 1427 ml Intake Oral 480 ml IV Total 1427 ml # Voids 2 1 3 # Bowel Movements 1 1 (Luana Gonzalez MD R1) Result Diagram: 12/02/16 0817 12/02/16 0817 Imaging Last Impressions Pelvis X-Ray 12/01/16 0639 Signed Impressions: Service Date/Time: Thursday, December 01, 2016 06:52 - CONCLUSION: No acute abnormality is identified. Maurice Vargas MD Head CT 12/01/16 0629 Signed Impressions: Service Date/Time: Thursday, December 01, 2016 06:39 - CONCLUSION: Negative noncontrast CT brain. Remington Berg MD Maxillofacial CT 12/01/16 0000 Signed Impressions: Service Date/Time: Thursday, December 01, 2016 06:39 - CONCLUSION: No facial bone fractures seen. Remington Berg MD Carotid Artery Ultrasound 12/01/16 0000 Signed Impressions: Service Date/Time: Thursday, December 01, 2016 21:31 - CONCLUSION: Mild atherosclerotic changes at the carotid bifurcation bilaterally. No focal high grade or hemodynamically significant stenosis is demonstrated. Hang Loco MD Objective Remarks CONST: Obese male in NAD DERM: Warm and dry, Superficial abrasions on both arms, erythema on knees bilaterally HEENNT: PERRL. EOMI. MMM. Very poor dentition with jagged teeth. Laceration inferior to R lip in semi-[place] configuration, ~2" long, sutured. R lip grossly swollen, but improved. CV: RRR. No murmurs. RESP: Prolonged expiratory phase with harsh transmitted upper respiratory sounds. Moderate air movement. Breathing well on RA. Speaks full sentences without difficulty. GI: Abd soft, distended, non-tender. +BS MSK: Moves all four limbs against gravity. R ankle swollen, non-tender, non- erythematous. Yellow, brittle, dry toenails. No skin breakdown noted on feet. NEURO: Motor and sensory function grossly intact. PSYCH:Appropriate. Moderate insight. (Luana Gonzalez MD R1) Urinary Catheter: No (Luana Gonzalez MD R1) Vascular Central Line Catheter: No (Luana Gonzalez MD R1) A/P Assessment and Plan 71y male with DM2 and CAD hospitalized 11/30/15 for syncope, found to be in acute renal failure and hypoglycemic. Discharge Planning Today or tomorrow (12/02 or 12/03) pending workup of L shoulder. Though Cr is elevated, not indication to keep, may follow up as outpt with PCP SDW: Dr Jacques, Dr. Merrill, Dr. Hicks, [address] ([facility]) ( Luana Gonzalez MD R1) Attending Attestation Patient seen and examined. Case reviewed and discussed with the resident team. Agree with plan of care as discussed with me and documented in the resident note (Woodrow Jacques MD) Problem List: (1) Left shoulder pain Status: Acute Plan: Acute on chronic. Hx of L rotator cuff repair. On physical exam, unable to actively ABduct at L shoulder and extreme pain with forward flexion and external rotation. Ddx: tendinitis vs muscle strain vs fracture -Shoulder Xray complete pending -If negative for fracture, [facility] -If positive for fracture, will consult orthopedics -PT recommends home with outpatient *OT* -Discharge with Toradol 1 tab q6h PRN pain #16 tabs (2) Injury of muscle or tendon of rotator cuff Status: Acute Plan: -see plan for L shoulder pain (3) Syncope Status: Acute Plan: Presented via EMS after unremembered fall in bathroom with head contusion , AMS, questionable LOC. Likely secondary to hypoglycemia (Glu 52 on arrival) vs mechanical fall. ACS rule out negative.Carotid Artery US: mild atherosclerotic changes at bifurcation, but no significant stenosis. Electrolytes, U/A, Head CT, pelvic Xray, facial CT grossly wnl. Plan -Control blood sugars appropriately on admission (see DM2) -Discharge with instructions to take blood glucose at least once daily and record in a list to bring to PCP -Discontinue oral diabetic medications at discharge, follow up with PCP to re- instate, if necessary -Supportive care -OOB ad bartolo, oxygen supplementation PRN saturations 88+, PT consulted -Discontinued continuous telemetry and Neuro checks q4h (4) Renal failure Status: Acute Plan: Improved. Baseline Cr 1.6. Currently 3.4. Denies recent medication change, decreased UOP, or weight change. Mg, PO4, LFT, uric acid wnl. Mild hypocalcemia -Fluids as below, Trend Bun/Cr, Monitor I/Os (5) Lip laceration Status: Acute Plan: Poor dentition with jagged teeth. Appears to have bit lip during fall. S/p lac repair in ED. Per UTD, will start prophylactic abx as below. -Amoxicillin 500mg BID -Pain management: [place] 5/325 1 tab q6h pain 5-10 [place] 5/325 1 tab q6h breakthrough pain (6) DM2 (diabetes mellitus, type 2) Status: Chronic Plan: Hold home glimeperide. -LSSI + Accue-checks ACHS -Pending sugars over next 24 hours, may add scheduled insulin at meals (7) CAD (coronary artery disease) Status: Chronic Plan: Meds obtained by calling [facility]. [facility] as [facility] are duplicate medications. S/p stents x3 (04/2016). -Continue home aspirin -Continue home Plavix 75mg daily -Held Brilinta, duplicate antiplatelet medication, discontinue at discharge -Continue home Lasix 40mg BID -Continue home Isosorbide mononitrate 60mg daily -Continue home carvedilol 25mg BID (8) HLD (hyperlipidemia) Status: Chronic Plan: No lipid lowering medications on admit. Pt is poor historian for medications- appears to get some from PCP in [facility] and some from [place]. -Pravastatin 40mg daily HS, continue at discharge (9) HTN (hypertension) Status: Chronic Plan: Hold home lisinopril 20mg daily secondary to acute renal failure. -Continue home amlodipine 5mg daily (10) Gout Status: Chronic Plan: -Hold home allopurinol 300mg daily (11) Alcohol consuption of more than two drinks per day Status: Chronic Plan: 3-4 beers/daily. No hx of withdrawal. -[facility] protocol -Alcohol cessation counseling provided. Recommended <2 drinks/daily for men (12) MDD (major depressive disorder) Status: Chronic Plan: -Continue home trazodone 50mg HS (13) FEN/PPX Status: Acute Plan: Fluids: MIVF- NS @140mL/hr Electrolytes: monitor and replete, PRN. Wnl on admission. Continue monitor potassium w renal failure Nutrition: Diabetic 1800cal diet DVT ppx: Lovenox 30mg INJ daily (renally dosed for acute renal failure) GI ppx: Not indicated (Luana Gonzalez MD R1) Problem Qualifiers (1) Left shoulder pain: Qualified Code: M25.512 - Acute pain of left shoulder (2) Injury of muscle or tendon of rotator cuff: Qualified Code: S46.002A - Injury of muscle or tendon of rotator cuff, left, initial encounter (3) Syncope: Qualified Code: R55 - Syncope, unspecified syncope type (4) Lip laceration: Qualified Code: S01.511A - Lip laceration, initial encounter (5) DM2 (diabetes mellitus, type 2): (6) CAD (coronary artery disease): Qualified Code: I25.10 - Coronary artery disease involving [place] coronary artery of [place] heart without angina pectoris (7) Gout: Qualified Code: M1A.30X0 - Chronic gout due to renal impairment without tophus , unspecified site (8) MDD (major depressive disorder): Qualified Code: F33.41 - Recurrent major depressive disorder, in partial remission Luana Gonzalez MD R1 Dec 02, 2016 12:25 Woodrow Jacques MD Dec 03, 2016 10:52
--- NOTE | 2016-12-02 13:58 | HHI.FF ---
Face to Face Verification Diagnosis: (1) Injury of muscle or tendon of rotator cuff (2) Left shoulder pain (3) Syncope (4) Alcohol consuption of more than two drinks per day (5) Hypoglycemia due to type 2 diabetes mellitus (6) Renal failure (7) Gout (8) CAD (coronary artery disease) (9) MDD (major depressive disorder) (10) Lip laceration Occupational Therapy Order: Evaluate and Treat Home Health Nursing Order: Signs/symptoms of disease process Medication education-adverse effect Nursing assessment with vital signs I have seen patient Oscar Russ on 12/02/16. My clinical findings support the need for the requested home health care services because: Med compliance is questionable Limited ability to care for self Need for psychosocial assistance Impaired cognition/judgement High risk of falls I certify that my clinical findings support that this patient is homebound because: Unsteady gait/balance Need for psychosocial assistance Luana Gonzalez MD R1 Dec 02, 2016 13:58
[2016-12-02] MEDS ORDERED: NAPROXEN 500 MG TAB PO SCH (14:00)
[2016-12-02] MEDS ORDERED: AMOX500C PO (14:45)
--- NOTE | 2016-12-02 15:28 | RADRPT ---
EXAM DATE/TIME: 12/02/2016 14:41 [facility] COMPARISON: No previous studies available for comparison. INDICATIONS : Left shoulder pain after fall. MEDICAL HISTORY : Previous left shoulder rotator cuff tear. SURGICAL HISTORY : None. ENCOUNTER: Initial ACUITY: 2 days PAIN SCORE: 10/10 LOCATION: Left shoulder. FINDINGS: Degenerative changes are present about the shoulder. There is moderate subacromial spurring. Moderat e AC joint degenerative changes. CONCLUSION: Degenerative changes without fracture. Fahad Morris MD FACR on December 02, 2016 at 15:24 Board Certified Radiologist. This report was verified electronically.
[2016-12-02] MEDS ORDERED: KETO10 PO (15:43)
[2016-12-02 15:45] VITALS: BP 133/66; PULSE 84; RESP 20; TEMP 95.3; O2SAT 98
--- NOTE | 2016-12-02 17:23 | EKG ---
Date Performed: 12/01/2016 Time Performed: 18:37:08 PTAGE: 71 years EKG: Sinus rhythm Compared to prior tracing no significant change NORMAL ECG PREVIOUS TRACING : 12/01/2016 07.02 DOCTOR: Ivan Flower Interpretating Date/Time 12/02/2016 17:22:19
== END 2016-12-02 17:53 | disposition home or self-care (01) | DRG 989 ==
LOC: NEPE 06:26 → NEDA 08:49 → N05B 17:00
PROVIDERS: ADMIT Family Medicine; ATTEND Family Medicine
PROC: 0CQ4XZZ Repair Buccal Mucosa, External Approach (ICD-10-PCS; principal; 2016-12-01)
PROC: 0HQ1XZZ Repair Face Skin, External Approach (ICD-10-PCS; 2016-12-01)
DX: N17.9 Acute kidney failure, unspecified (principal); E11.649 Type 2 diabetes mellitus with hypoglycemia without coma; S01.511A Laceration without foreign body of lip, initial encounter; S01.81XA Laceration without foreign body of other part of head, initial encounter; I10 Essential (primary) hypertension; S00.93XA Contusion of unspecified part of head, initial encounter; E83.51 Hypocalcemia; R55 Syncope and collapse; S46.002A Unspecified injury of muscle(s) and tendon(s) of the rotator cuff of left shoulder, initial encounter; I25.10 Atherosclerotic heart disease of native coronary artery without angina pectoris; E78.5 Hyperlipidemia, unspecified; M1A.9XX0 Chronic gout, unspecified, without tophus (tophi); F33.41 Major depressive disorder, recurrent, in partial remission; W18.30XA Fall on same level, unspecified, initial encounter; Y92.002 Bathroom of unspecified non-institutional (private) residence as the place of occurrence of the external cause; Z79.84 Long term (current) use of oral hypoglycemic drugs; Z87.891 Personal history of nicotine dependence; Z95.5 Presence of coronary angioplasty implant and graft
CPT/HCPCS: 12016; 70450; 70486; 72170; 73030; 80048; 80076; 81001; 82310; 82550; 82948; 83735; 84100; 84484; 84550; 85025; 85027; 85610; 85730; 93005; 93880; 96374; 96375; J1650; J1815; J7030; L0150